=== PATIENT | female | born 2000 | race African-American/Black ===

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

== ENCOUNTER 2018-06-18 07:51 | Emergency (ER) | payer BC, OTHER ==
[2018-06-18] MEDS ORDERED: IPRATROPIUM/ALBUTEROL 0.5-2.5 MG/3 ML AMPUL NEB ONE (08:16)
--- NOTE | 2018-06-18 08:40 | RADIOLOGY REPORT (SQ) ---
EXAM DESCRIPTION: CHEST 2 VIEWS COMPLETED DATE/TIME: 06/18/2018 8:28 am REASON FOR STUDY: sob, wheezing COMPARISON: Two-view chest 02/16/2017 EXAM PARAMETERS: NUMBER OF VIEWS: two views TECHNIQUE: Digital Frontal and Lateral radiographic views of the chest acquired. RADIATION DOSE: NA LIMITATIONS: none FINDINGS: LUNGS AND PLEURA: No opacities, masses or pneumothorax. No pleural effusion. MEDIASTINUM AND HILAR STRUCTURES: No masses or contour abnormalities. HEART AND VASCULAR STRUCTURES: Heart normal size. No evidence for failure. BONES: No acute findings. HARDWARE: None in the chest. OTHER: No other significant finding. IMPRESSION: NO ACUTE RADIOGRAPHIC FINDING IN THE CHEST. TECHNICAL DOCUMENTATION: JOB ID: [id number] [employer]- All Rights Reserved Reading location - IP/workstation name: [email or web address]
[2018-06-18 09:15] LABS: APPEARANCE,URINE SLIGHTLY-CLOUDY; BILIRUBIN,URINE NEGATIVE (NEGATIVE); COLOR,URINE YELLOW; GLUCOSE, URINE NEGATIVE (NEGATIVE); KETONES,URINE NEGATIVE (NEGATIVE); LEUKOCYTE ESTERASE,URINE NEGATIVE (NEGATIVE); NITRITE,URINE NEGATIVE (NEGATIVE); PROTEIN,URINE NEGATIVE (NEGATIVE); URINE SPECIFIC GRAVITY 1.018; UROBILINOGEN,URINE NEGATIVE mg/dL (<2.0)
--- NOTE | 2018-06-18 09:43 | ER Document Report ---
HPI - HPI Time Seen by Provider: 06/18/18 08:05 Pain Level: 3 Notes: Patient is a 18-year-old female who presents with chief complaint of possible asthma attack. Patient reports over the last 2 days she has been using her albuterol inhaler more frequently. She states that prior to her asthma attack she had a cough, nasal congestion and low-grade fever. She also reports complaint of low back pain. She denies any dysuria, urinary frequency or urgency. - NEURO Neurology: DENIES: Headache, Weakness, Vision blurred, Dizzinesss / Vertigo - CARDIOVASCULAR Cardiovascular: DENIES: Chest pain - RESPIRATORY Respiratory: REPORTS: Trouble Breathing - ctab, Coughing - REPRODUCTIVE Reproductive: DENIES: : Past Medical History - General Information source: Patient - Social History Smoking Status: Never Smoker Frequency of alcohol use: None Drug Abuse: None Family History: Reviewed & Not Pertinent Patient has suicidal ideation: No Patient has homicidal ideation: No Pulmonary Medical History: Reports: Hx Asthma, Hx Pneumonia Endocrine Medical History: Denies: Hx Diabetes Mellitus Type 1 Renal/ Medical History: Reports: Hx Ovarian Cysts. Denies: Hx Peritoneal Dialysis Psychiatric Medical History: Reports: Hx Depression - Immunizations Immunizations up to date: Yes Vertical Provider Document - CONSTITUTIONAL Notes: PHYSICAL EXAMINATION: GENERAL: Well-appearing, well-nourished and in no acute distress. HEAD: Atraumatic, normocephalic. EYES: Pupils equal round extraocular movements intact, conjunctiva are normal. ENT: Nares patent with rhinorrhea noted. NECK: Normal range of motion LUNGS: No respiratory distress, mild expiratory wheezing noted, no use of accessory muscles. Musculoskeletal: Normal range of motion, mild tenderness to palpation to right lumbar paraspinous muscles. No CVA tenderness noted. NEUROLOGICAL: Normal speech, normal gait. PSYCH: Normal mood, normal affect. SKIN: Warm, Dry, normal turgor, no rashes or lesions noted. - INFECTION CONTROL TRAVEL OUTSIDE OF THE [place] IN LAST 30 DAYS: No Course - Re-evaluation Re-evalutation: Urinalysis was performed to rule out urinary tract infection as a source of her back pain. Urinalysis with no signs of infection. Chest x-ray was performed as patient and mother state that she has had a history of pneumonia in the past. Chest x-ray is negative for any infiltrates. - Laboratory Laboratory results interpreted by me: 06/18/18 08:34 Urine Ascorbic Acid 40 H Discharge - Discharge Clinical Impression: Asthma exacerbation Qualifiers: Asthma severity: mild Asthma persistence: intermittent Qualified Code(s): J45.21 - Mild intermittent asthma with (acute) exacerbation Back pain Qualifiers: Back pain location: low back pain Chronicity: acute Back pain laterality: right Sciatica presence: without sciatica Qualified Code(s): M54.5 - Low back pain Condition: Stable Disposition: HOME, SELF-CARE Additional Instructions: Asthma You have been diagnosed as having asthma. This is a condition where there is episodic tightness in the bronchial tubes. Allergies, infections, and polluted or cold air may be contributing factors. Emergency treatment of a severe asthma attack may include adrenaline shots , or bronchodilator aerosol. You may feel lightheaded, have a decreased exercise tolerance and a rapid pulse for an hour or two. Rest and get plenty of fluids. Home treatment of asthma requires bronchodilator drugs. These can be administered by injection, inhalation, or by mouth. Antibiotics and corticosteroids may be required for some patients. You should avoid chemical fumes, dusts, pollens, and exercising in very cold or dry air. If you smoke, stop!! If you develop a fever, increased wheezing, chest pain, or severe shortness of breath, you should contact the doctor immediately Your urinalysis today was negative for any signs of infection. The chest x- ray did not show any pneumonia. Your symptoms are most likely being caused by an acute asthma exacerbation. Please continue to use your albuterol inhaler as prescribed by your primary care physician. Since her vital signs were stable when you got here and you did not have any wheezing at the time of my assessment I do not think we should start you on steroids at this time. If your symptoms worsen please follow-up with your primary care provider. Return to the emergency department immediately if he does develop shortness of breath, difficulty breathing or any other symptom that is concerning to you. Forms: Return to Work Referrals: THADDEUS HARTMAN MD [Primary Care Provider] - Follow up as needed
[2018-06-18 09:52] VITALS: BP 106/79
== END 2018-06-18 09:54 | disposition home or self-care (01) ==
LOC: ER 07:51
DX: J45.21 Mild intermittent asthma with (acute) exacerbation (principal); M54.5 Low back pain
CPT/HCPCS: 94640; 99285; 81001; 71046; J7620

== ENCOUNTER 2019-04-08 07:44 | Emergency (ER) | payer BC, MEDICAID, OTHER ==
[2019-04-08] MEDS ORDERED: NORMAL SALINE 1000 ML 1,000 ML IV ONE (08:00)
[2019-04-08] MEDS ORDERED: KETOROLAC TROMETHAMINE INJ/PF 30 MG/1 ML SDV IV ONE (08:01)
[2019-04-08] MEDS ORDERED: ONDANSETRON HCL INJ/PF 4 MG/2 ML SDV IV ONE (08:01)
--- NOTE | 2019-04-08 08:11 | ER Document Report ---
ED General - General Chief Complaint: Flank Pain Stated Complaint: LEFT FLANK PAIN Time Seen by Provider: 04/08/19 07:59 Primary Care Provider: THADDEUS HARTMAN MD [ACTIVE STAFF] - Follow up as needed Notes: 18-year-old female presents to the emergency by complaining of left flank pain rating to left lower quadrant of her abdomen. Stated that she began having this this morning. Describes a aching and cramping. She denies any hematuria or dysuria states she has had chills but denies fever. Denies dysuria. Denies any history of kidney stones. States she is on her. Oftentimes she gets a lot of cramping and pain in the beginning of her cycle but she is toward the end this is a typical she denies . Denies any falls or trauma denies any vaginal discharge other than the bleeding. Denies nausea vomiting or constipation. Diarrhea. TRAVEL OUTSIDE OF THE [place] IN LAST 30 DAYS: No - Related Data Allergies/Adverse Reactions: No Known Allergies Allergy (Verified 04/08/19 07:45) Past Medical History - Social History Smoking Status: Unknown if Ever Smoked Family History: Reviewed & Not Pertinent Pulmonary Medical History: Reports: Hx Asthma, Hx Pneumonia Endocrine Medical History: Denies: Hx Diabetes Mellitus Type 1 Renal/ Medical History: Reports: Hx Ovarian Cysts. Denies: Hx Peritoneal Dialysis Psychiatric Medical History: Reports: Hx Depression - Immunizations Immunizations up to date: Yes Review of Systems - Review of Systems Constitutional: Chills. denies: Fever Cardiovascular: denies: Chest pain Respiratory: denies: Short of breath Gastrointestinal: denies: Abdominal pain, Diarrhea, Nausea, Vomiting Genitourinary: Flank pain. denies: Dysuria, Discharge, Hematuria Female Genitourinary: Vaginal bleeding. denies: Vaginal odor Musculoskeletal: Back pain Neurological/Psychological: denies: Headaches -: Yes All other systems reviewed and negative Physical Exam - Vital signs Vitals: Temp Pulse Resp BP Pulse Ox 98.6 F 75 18 125/94 H 97 04/08/19 07:47 04/08/19 07:47 04/08/19 07:47 04/08/19 07:47 04/08/19 07:47 - Notes Notes: GENERAL_APPEARANCE: well_nourished, alert, cooperative, no_acute_distress, no_obvious_discomfort. VITALS: reviewed, see vital signs table. HEAD: no_swelling\tenderness on the head. EYES: conjunctiva_clear. NOSE: no_nasal_discharge. MOUTH: (-)decreased moisture. THROAT: no_tonsilar_inflammation, no_airway_obstruction. no_lymphadenopathy NECK: supple, no_neck_tenderness, (-)thyromegaly. BACK: Left CVA back_tenderness. CHEST_WALL: no_chest_tenderness. LUNGS: no_wheezing, no_rales, no_rhonchi, (-)accessory muscle use, good air exchange bilateral. HEART: normal_rate, normal_rhythm, normal_S1, normal_S2, (-)S3, (-)S4, no_murmur, no_rub. ABDOMEN: soft, left lower quadrant_abd_tenderness, (-)guarding, (-)rebound, no_organomegaly, no_abd_masses. EXTREMITIES: good pulses in all_extremities, no_swelling\tenderness in the extremities, no_edema. SKIN: warm, dry, good_color, no_rash. MENTAL_STATUS: speech_clear, oriented_X_3, normal_affect, responds_appropriately to questions. Course - Re-evaluation Re-evalutation: 04/08/19 08:11 18-year-old female presents with left CVA tenderness and left lower quadrant tenderness we will get a CT to assess for kidney stone urine to assess for pyelonephritis and blood work. Patient denies but will check a urine test. The patient IV fluids pain and nausea medicine. 04/08/19 12:52 CT shows a 2.2 mm stone at the left UVJ. Patient is better with Toradol and fluids. Patient will be given instructions Flomax and Toradol for home we will have her follow-up with her family doctor. Patient states she does not drink enough water normally and does get dehydrated rather quickly. - Vital Signs Vital signs: Temp Pulse Resp BP Pulse Ox 98.6 F 90 18 108/67 99 04/08/19 12:47 04/08/19 12:47 04/08/19 12:47 04/08/19 12:47 04/08/19 12:47 - Laboratory Result Diagrams: 04/08/19 08:35 04/08/19 08:35 Laboratory results interpreted by me: 04/08/19 08:35 Urine Blood MODERATE H - Diagnostic Test Radiology reviewed: Reports reviewed Radiology results interpreted by me: 04/08/19 12:32 Abdomen/Pelvis CT 04/08/19 08:00 IMPRESSION: 2.2 mm left UVJ stone with mild left-sided hydronephrosis and hydroureter. Discharge - Discharge Clinical Impression: Kidney stone on left side Condition: Good Disposition: HOME, SELF-CARE Instructions: Kidney Stone ([facility]) Additional Instructions: Drink plenty of water and fluids take meds as prescribed follow-up with your family doctor. Prescriptions: Ketorolac Tromethamine [Toradol 10 mg Tablet] 10 mg PO Q6HP PRN #12 tablet PRN Reason: Tamsulosin HCl [Flomax] 0.4 mg PO DAILY #7 cap.er.24h Referrals: THADDEUS HARTMAN MD [ACTIVE STAFF] - Follow up as needed
[2019-04-08 08:52] LABS: ABSOLUTE EOSINOPHILS # (AUTO) 0.1 10^3/uL (0.0-0.6); ABSOLUTE LYMPHOCYTES (AUTO) 1.3 10^3/uL (0.5-4.7); ABSOLUTE MONOCYTES (AUTO) 0.5 10^3/uL (0.1-1.4); ABSOLUTE NEUT (AUTO) 6.5 10^3/uL (1.7-8.2); BASOPHILS % (AUTO) 0.5 % (0-2); EOSINOPHILS % (AUTO) 0.7 % (0-6); HEMATOCRIT 38.5 % (36.0-47.0); HEMOGLOBIN 13.1 g/dL (12.0-15.5); LYMPHOCYTES % (AUTO) 15.4 % (13-45); MEAN CORPUSCULAR HEMOGLOBIN 31.4 pg (27.0-33.4); MEAN CORPUSCULAR HGB CONC 34.1 g/dL (32.0-36.0); MEAN CORPUSCULAR VOLUME 92 fl (80-97); MONOCYTES % (AUTO) 5.5 % (3-13); PLATELET COUNT 292 10^3/uL (150-450); RED BLOOD COUNT 4.18 10^6/uL (3.72-5.28); RED CELL DISTRIBUTION WIDTH 13.1 % (11.5-14.0); SEGMENTED NEUTROPHILS % (AUTO) 77.9 % (42-78); TOTAL CELLS COUNTED % (AUTO) 100 %; WHITE BLOOD COUNT 8.4 10^3/uL (4.0-10.5)
[2019-04-08 09:01] LABS: LEUKOCYTE ESTERASE,URINE NEGATIVE (NEGATIVE)
[2019-04-08 09:02] LABS: APPEARANCE,URINE CLEAR; BILIRUBIN,URINE NEGATIVE (NEGATIVE); COLOR,URINE COLORLESS; GLUCOSE, URINE NEGATIVE (NEGATIVE); KETONES,URINE NEGATIVE (NEGATIVE); NITRITE,URINE NEGATIVE (NEGATIVE); PROTEIN,URINE NEGATIVE (NEGATIVE); URINE SPECIFIC GRAVITY 1.015; UROBILINOGEN,URINE NEGATIVE mg/dL (<2.0)
[2019-04-08 09:06] LABS: ALBUMIN 4.1 g/dL (3.5-5.0); ALKALINE PHOSPHATASE 51 U/L (38-126); ANION GAP 10 (5-19); ASPARTATE AMINO TRANSFERASE 20 U/L (14-36); BILIRUBIN,TOTAL 0.3 mg/dL (0.2-1.3); BLOOD UREA NITROGEN 14 mg/dL (7-20); CALCIUM 9.3 mg/dL (8.4-10.2); CARBON DIOXIDE 26 mmol/L (22-30); CHLORIDE 105 mmol/L (98-107); GLUCOSE 90 mg/dL (75-110); POTASSIUM 4.1 mmol/L (3.6-5.0); TOTAL PROTEIN 7.2 g/dL (6.3-8.2)
--- NOTE | 2019-04-08 09:42 | RADIOLOGY REPORT (SQ) ---
EXAM DESCRIPTION: CT ABD/PELVIS NO ORAL OR IV COMPLETED DATE/TIME: 04/08/2019 9:25 am REASON FOR STUDY: Flank Pain COMPARISON: None. TECHNIQUE: CT scan of the abdomen and pelvis performed without intravenous or oral contrast. Images reviewed with lung, soft tissue, and bone windows. Reconstructed coronal and sagittal MPR images revi ewed. All images stored on PACS. All CT scanners at this facility use dose modulation, iterative reconstruction, and/or weight based d osing when appropriate to reduce radiation dose to as low as reasonably achievable (ALARA). [facility]: Dose Right [facility]: CareDose [facility]: Dose Right [facility]: Teradose 4D [facility]: Smart Ini3 Digital RADIATION DOSE: CT Rad equipment meets quality standard of care and radiation dose reduction techniq ues were employed. CTDIvol: 5.8 mGy. DLP: 300 mGy-cm.mGy. LIMITATIONS: None. FINDINGS: LOWER CHEST: No significant findings. No nodules or infiltrates. NON-CONTRASTED LIVER, SPLEEN, ADRENALS: Evaluation limited by lack of IV contrast. No identified sign ificant masses. PANCREAS: No masses. No peripancreatic inflammatory changes. GALLBLADDER: No identified stones by CT criteria. No inflammatory changes to suggest cholecystitis. RIGHT KIDNEY AND URETER: No suspicious masses. Assessment limited by lack of IV contrast. Numerous nonobstructing right renal calculi. No hydronephrosis or hydroureter. LEFT KIDNEY AND URETER: No suspicious masses. Assessment limited by lack of IV contrast. There are numerous small nonobstructing left renal calculi. There is a 2.2 mm stone at the left UVJ. There i s mild left-sided hydronephrosis and hydroureter. AORTA AND RETROPERITONEUM: No aneurysm. No retroperitoneal masses or adenopathy. BOWEL AND PERITONEAL CAVITY: No obvious masses or inflammatory changes. No free fluid. APPENDIX: Normal. PELVIS, BLADDER, AND ABDOMINAL WALL:No abnormal masses. No free fluid. Bladder normal. BONES: No significant findings. OTHER: No other significant finding. IMPRESSION: 2.2 mm left UVJ stone with mild left-sided hydronephrosis and hydroureter. COMMENT: Quality ID # [id number]: Final reports with documentation of one or more dose reduction techniques (e.g., Automated exposure control, adjustment of the mA and/or kV according to patient size, use of iterative reconstruction technique) TECHNICAL DOCUMENTATION: JOB ID: [id number] [employer]- All Rights Reserved Reading location - IP/workstation name: [email or web address]
[2019-04-08 12:49] VITALS: BP 108/67
== END 2019-04-08 13:16 | disposition home or self-care (01) ==
LOC: ER 07:44
DX: N13.2 Hydronephrosis with renal and ureteral calculous obstruction (principal); R10.9 Unspecified abdominal pain; R10.814 Left lower quadrant abdominal tenderness; R68.83 Chills (without fever); J45.909 Unspecified asthma, uncomplicated; Z87.42 Personal history of other diseases of the female genital tract
CPT/HCPCS: 36415; 83690; 85025; 81025; 80053; 81001; 74176; J1885; J2405; J7030; 96361; 96374; 96375; 99284

== ENCOUNTER 2019-09-15 18:50 | Emergency (ER) | payer BC, OTHER ==
[2019-09-15] MEDS ORDERED: ACETAMINOPHEN 325 MG TABLET PO ONE (19:17)
--- NOTE | 2019-09-15 19:19 | ER Document Report ---
HPI - HPI Time Seen by Provider: 09/15/19 19:14 Pain Level: 3 Notes: Patient is a 19-year-old female with no significant past medical history presents complaining of left thumb pain status post injury a couple days ago when her dog ran into her thumb. She has noticed a little area of bruising, but no significant swelling. She does have a thumb spica splint that she has been using regularly. Denies drug allergies. No other concerns or complaints. Denies any headache, fever, neck pain, URI, sore throat, chest pain, palpitations, syncope, cough, shortness of breath, wheeze, dyspnea, abdominal pain, nausea/vomiting/diarrhea, urinary retention, dysuria, hematuria, numbness/tingling, muscle paralysis/weakness, or rash. - ROS Systems Reviewed and Negative: Yes All other systems reviewed and negative - REPRODUCTIVE Reproductive: DENIES: : Past Medical History - Social History Smoking Status: Current Some Day Smoker Frequency of alcohol use: None Drug Abuse: None Family History: Reviewed & Not Pertinent Patient has suicidal ideation: No Patient has homicidal ideation: No Pulmonary Medical History: Reports: Hx Asthma, Hx Pneumonia Endocrine Medical History: Denies: Hx Diabetes Mellitus Type 1 Renal/ Medical History: Reports: Hx Ovarian Cysts. Denies: Hx Peritoneal Dialysis Psychiatric Medical History: Reports: Hx Depression - Immunizations Immunizations up to date: Yes Vertical Provider Document - CONSTITUTIONAL Agree With Documented VS: Yes Notes: PHYSICAL EXAMINATION: GENERAL: Well-appearing, well-nourished and in no acute distress. HEAD: Atraumatic, normocephalic. NECK: Normal range of motion, supple without lymphadenopathy. No midline tenderness. LUNGS: Breath sounds clear to auscultation bilaterally and equal. No wheezes rales or rhonchi. HEART: Regular rate and rhythm without murmurs, rubs, gallops. Musculoskeletal: Lt hand: + mild scant ecchymosis proximal thumb area. No erythema, warmth, deformity, or swelling noted. N/V intact distal. FROM to passive/active. Strength 5+/5 to chemical handler. No scaphoid tenderness. Tinel/phalen neg. No other bony tenderness. Gamekeeper negative. Extremities: No cyanosis, clubbing, or edema b/l. Peripheral pulses 2+. Capillary refill less than 3 seconds. NEUROLOGICAL: Normal speech, normal gait. Normal sensory, motor exams otherwise unremarkable PSYCH: Normal mood, normal affect. SKIN: see above. No rash - INFECTION CONTROL TRAVEL OUTSIDE OF THE [place] IN LAST 30 DAYS: No Course - Re-evaluation Re-evalutation: 09/15/19 20:07 Patient is an afebrile, well-hydrated, 19-year-old female who presents to the ED with left thumb pain which I suspect to be a contusion vs sprain/strain. Vitals are acceptable without any significant tachycardia, tachypnea, or hypoxia. PE is otherwise unremarkable for any neurovascular compromise, obvious tendon/ligament rupture, obvious fracture/dislocation, septic joint. X-ray was unremarkable for any acute pathology. Patient has a thumb spica that she is using currently. Patient is nontoxic-appearing. No other labs or imaging warranted at this time based on H&P. Conservative measures otherwise for symptoms. Recheck with your PCM in 3-5 days. Consider consult orthopedics. Return to the ED with any worsening/concerning symptoms otherwise as reviewed in discharge. Patient is in agreement. - Vital Signs Vital signs: Temp Pulse Resp BP Pulse Ox 98.4 F 88 20 111/72 100 09/15/19 19:06 09/15/19 19:06 09/15/19 19:06 09/15/19 19:06 09/15/19 19:06 Discharge - Discharge Clinical Impression: Pain of left thumb Condition: Stable Disposition: HOME, SELF-CARE Additional Instructions: Rest, Ice, Compression, Elevation Tylenol/ibuprofen as needed Light stretches daily Strength exercises as able Moist heat and massage may help F/u with your PCP in 3-5 days for a recheck Consider consult(s) with Orthopedics/physical therapy for ongoing/worsening symptoms Return to the ED with any worsening symptoms and/or development of fever, headache, chest pain, palpitations, syncope, shortness of breath, trouble b reathing, abdominal pain, n/v/d, muscle weakness/paralysis, numbness/tingling, swelling, redness, or other worsening symptoms that are concerning to you. Referrals: [facility] [Provider Group] - Follow up as needed
--- NOTE | 2019-09-15 20:05 | RADIOLOGY REPORT (SQ) ---
EXAM DESCRIPTION: HAND LEFT 3 VIEWS COMPLETED DATE/TIME: 09/15/2019 7:39 pm REASON FOR STUDY: left thumb pain s/p injury COMPARISON: None. EXAM PARAMETERS: NUMBER OF VIEWS: Three views. TECHNIQUE: AP, lateral and oblique radiographic images acquired of the left hand. LIMITATIONS: None. FINDINGS: MINERALIZATION: Normal. BONES: No acute fracture or dislocation. No worrisome bone lesions. JOINTS: No effusion. SOFT TISSUES: No significant soft tissue swelling. No radiopaque foreign body. OTHER: No other significant finding. IMPRESSION: NO FRACTURE. TECHNICAL DOCUMENTATION: JOB ID: [id number] [id number] 2010 [employer]- All Rights Reserved Reading location - IP/workstation name: [email or web address]
[2019-09-15 20:22] VITALS: BP 105/60
== END 2019-09-15 20:26 | disposition home or self-care (01) ==
LOC: ER 18:50
DX: M79.645 Pain in left finger(s) (principal); W22.8XXA Striking against or struck by other objects, initial encounter; F17.200 Nicotine dependence, unspecified, uncomplicated; J45.909 Unspecified asthma, uncomplicated
CPT/HCPCS: 99283

== ENCOUNTER 2019-11-02 01:50 | Emergency (ER) | payer BC, OTHER ==
[2019-11-02 02:05] VITALS: BP 118/78
--- NOTE | 2019-11-02 03:25 | ER Document Report ---
ED Fever - General Chief Complaint: Fever Stated Complaint: BREATHING DIFFICULTY Time Seen by Provider: 11/02/19 02:04 Primary Care Provider: RICKY CESPEDES PA-C [Primary Care Provider] - Follow up in 3-5 days Notes: Patient is a 19-year-old female presents emergency department with a chief complaint of a fever, mild abdominal pain, diarrhea, and mild shortness of breath. Patient states that she has been smoking hookah. She denies any travel or exposure to anyone testing positive for Covid 19. TRAVEL OUTSIDE OF THE [place] IN LAST 30 DAYS: No - Related Data Allergies/Adverse Reactions: pollen extracts Allergy (Verified 11/02/19 02:25) Past Medical History - Social History Smoking Status: Current Some Day Smoker Frequency of alcohol use: Occasional Drug Abuse: None Family History: Reviewed & Not Pertinent Patient has suicidal ideation: No Patient has homicidal ideation: No Pulmonary Medical History: Reports: Hx Asthma, Hx Pneumonia Endocrine Medical History: Denies: Hx Diabetes Mellitus Type 1 Renal/ Medical History: Reports: Hx Ovarian Cysts. Denies: Hx Peritoneal Dialysis Psychiatric Medical History: Reports: Hx Depression - Immunizations Immunizations up to date: Yes Review of Systems - Review of Systems Notes: REVIEW OF SYSTEMS: CONSTITUTIONAL : Denies recent illness. Denies recent unintentional weight loss. See HPI. EENT: Denies eye, ear, throat, or mouth pain, discharge, or symptoms. See HPI. CARDIOVASCULAR: Denies chest pain. RESPIRATORY: Denies shortness of breath, cough, congestion, difficulty breathing , or wheezing. GASTROINTESTINAL: Denies nausea, vomiting, and diarrhea. Denies abdominal pain. Denies constipation. GENITOURINARY: Denies difficulty urinating, burning, blood in urine, urgency or frequency. MUSCULOSKELETAL: Denies neck and back pain. Denies joint pain or swelling. SKIN: Denies rash, itchiness, or lesions HEMATOLOGIC : Denies easy bruising or bleeding. LYMPHATIC: Denies swollen, painful, enlarged glands. NEUROLOGICAL: Denies no numbness or tingling denies weakness. Denies altered mental status. Denies alteration in speech. See HPI. PSYCHIATRIC: Denies stress, anxiety, alteration in sleep patterns, or depression. All other systems reviewed and negative. Physical Exam - Vital signs Vitals: Temp Pulse BP Pulse Ox 99.5 F 115 H 118/78 96 11/02/19 02:01 11/02/19 02:01 11/02/19 02:01 11/02/19 02:01 - Notes Notes: PHYSICAL EXAMINATION: GENERAL: Appears well, healthy, well-nourished, no acute distress. HEAD: Normocephalic, atraumatic. EYES: PERRL, conjunctiva normal, all extraocular movements intact, sclera nonicteric ENT: Moist mucous membranes. Mild erythema noted to the oropharynx. Edema and erythema noted to nasal mucosa. NECK: Supple, no noticeable swelling, redness, rash. Normal range of motion. LUNGS: Equal breath sounds bilaterally and clear to auscultation. No wheezes rales or rhonchi. CARDIOVASCULAR: S1-S2, regular rate, regular rhythm. Radial pulses 2+, normal. ABDOMEN: Normoactive bowel sounds. Soft, nontender, no guarding, no rebound tenderness, and no masses palpated. EXTREMITIES: Normal strength and range of motion, no pitting or edema. No cyanosis. NEUROLOGICAL: Moves all extremities upon command. Strength 5/5 in all extremities. PSYCH: Normal mood, normal affect. SKIN: Warm, dry. No rash, lesions, ulcerations noted. Normal skin turgor. Course - Re-evaluation Re-evalutation: 11/02/19 Urinalysis is unremarkable. Rapid strep test is also negative. At this time, patient will be started on Flonase and cetirizine to help with her symptoms. I have a very low suspicion for peritonsillar abscess. Follow-up precautions were given. Verbal discharge instructions were given to the patient. They verbal ized understanding. They are stable for discharge. 11/04/19 GRISELDA Michelle showed me that the patient was positive for strep. Patient will be started on antibiotics. - Vital Signs Vital signs: Temp Pulse Resp BP Pulse Ox 99.5 F 115 H 118/78 96 11/02/19 02:01 11/02/19 02:01 11/02/19 02:01 11/02/19 02:01 - Laboratory Laboratory results interpreted by me: 11/02/19 03:08 Urine Ascorbic Acid 40 H Discharge - Discharge Clinical Impression: Sore throat Fever Qualifiers: Fever type: unspecified Qualified Code(s): R50.9 - Fever, unspecified Diarrhea Qualifiers: Diarrhea type: unspecified type Qualified Code(s): R19.7 - Diarrhea, unspecified Condition: Stable Disposition: HOME, SELF-CARE Additional Instructions: You are seen today in the emergency department for a sore throat and fever. Your rapid strep test was normal. If the culture comes back positive, you will be called and placed on antibiotics. You can use honey, tea, and [id number] throat lozenges to help with your sore throat. Please make sure you drink plenty of water. You are being started on cetirizine and Flonase to help with any runny nose or sore throat. Follow-up with your primary care provider. Prescriptions: Cetirizine HCl [All Day Allergy] 10 mg PO DAILY #30 tablet Fluticasone Propionate [Flonase Nasal [place] 50 Mcg/[place] 16 gm] 2 sprays NASL DAILY #1 inhaler Referrals: RICKY CESPEDES PA-C [Primary Care Provider] - Follow up in 3-5 days
[2019-11-02 03:26] LABS: APPEARANCE,URINE CLOUDY; BILIRUBIN,URINE NEGATIVE (NEGATIVE); COLOR,URINE YELLOW; GLUCOSE, URINE NEGATIVE (NEGATIVE); KETONES,URINE NEGATIVE (NEGATIVE); LEUKOCYTE ESTERASE,URINE NEGATIVE (NEGATIVE); NITRITE,URINE NEGATIVE (NEGATIVE); PROTEIN,URINE NEGATIVE (NEGATIVE); URINE SPECIFIC GRAVITY 1.009; UROBILINOGEN,URINE NEGATIVE mg/dL (<2.0)
== END 2019-11-02 04:12 | disposition home or self-care (01) ==
LOC: ER 01:50
DX: R50.9 Fever, unspecified (principal); J02.9 Acute pharyngitis, unspecified; R19.7 Diarrhea, unspecified; R10.9 Unspecified abdominal pain; R06.02 Shortness of breath; F17.200 Nicotine dependence, unspecified, uncomplicated; J45.909 Unspecified asthma, uncomplicated; Z91.048 Other nonmedicinal substance allergy status
CPT/HCPCS: 81001; 87070; 87077; 87880; 99283